=== PATIENT | female | born 1985 | race Caucasian/White ===

== ENCOUNTER 2016-06-21 11:24 | Emergency (ER) | payer MEDICAID ==
[~2016-06-21] VITALS: Ht 152.4 cm; Wt 52.2 kg
[~2016-06-21 11:24] MED LIST: AMOX500C2 PO; CODE-54 PO; DULO20CA; HYDR-1231 PO; IBUP-1773 PO; NAPR-243 PO; NAPR250T34 PO; NAPR500T PO; ONDA4TAB8 PO; PREN-93 PO; PREN1TAB4 PO; RNT150T PO; SULF1TAB35 PO; TRM50T PO; [UNRECOGNIZED DRUG - CODE] OP
[2016-06-21] MEDS ORDERED: DEXAMETHASONE PF 10 MG/ML (DECADRON) VIAL IV STA (12:22)
[2016-06-21] MEDS ORDERED: HYDROcodone/APAP 5 MG/325 MG (LORTAB) TAB PO STA (12:22)
[2016-06-21] MEDS ORDERED: ACETAMINOPHEN 325 MG TABLET/CAPLET (TYLENOL) PO STA (12:22)
[2016-06-21] MEDS ORDERED: DEXAMETHASONE PF 10 MG/ML (DECADRON) VIAL IM STA (12:28)
--- NOTE | 2016-06-21 12:28 | ED EENT ---
History of Present Illness General Chief Complaint: Ear Problems Stated Complaint: LEFT EARACHE Nursing Triage Note: pt states she has had a left ear ache since yesterday morning. She put equate instant dry drops into her left ear and slept with a cotton ball in last night. she woke up feeling worse than yesterday. pt states she cant turn her head at all and there is a knot in her neck on the left side. She made a doctor appt but wasn't able to get in till 1420 this afternoon, pt states she couldn't wait that long that pain is to intense. History of Present Illness Time seen by provider: 12:15 Initial Comments Left ear pain that began yesterday morning. Rates the pain at a 9/10 at the present time. No history of previous ear problems. Took ibuprofen 800 mg last night no medications today for treatment. Timing/Duration: abrupt Severity: severe Location: ear (L), other (left neck) Prearrival Treatment: no prearrival treatment Modifying Factors: Improves With Rest Associated Symptoms: change in hearing (left ear decreased), No cough, No ear drainage, No facial pain/swelling, fever, No nasal congestion/drainage, No sinus infection, No sore throat, No tooth pain, No voice change Allergies and Home Medications Allergies Coded Allergies: NKANo Known Allergies (Verified Allergy, Unknown, 10/12/06) No Known Drug Allergies (Unverified , 06/02/08) Home Medications Amoxicillin 500 Mg Capsule, 500 MG PO TID for 10 Days, #30 Ref 0 Prescribed by: XIOMARA ALONZO on 06/21/16 1324 Zach/Polymyx B Sulf/Dexameth 5 Ml Drops.susp, 3 DROPS LEFT EAR TID for 7 Days, # 1 Ref 0 Prescribed by: XIOMARA ALONZO on 06/21/16 1324 Review of Systems Constitutional: no symptoms reported, see HPI Eyes: No Symptoms Reported, See HPI Ears: See HPI, Pain (left) Nose: no symptoms reported, see HPI Mouth: no symptoms reported, see HPI Throat: no symptoms reported, see HPI Respiratory: no symptoms reported, see HPI Cardiovascular: no symptoms reported, see HPI Gastrointestinal: no symptoms reported, see HPI : No (tubal ligation) Musculoskeletal: no symptoms reported, see HPI Skin: no symptoms reported, see HPI Neurological: No Symptoms Reported, See HPI Hematologic/Lymphatic: No Symptoms Reported, See HPI Immunological/Allergic: no symptoms reported, see HPI All Other Systems Reviewed Negative Unless Noted: Yes Past Bmfvckh-Ylygjg-Ndsrld Hx Patient Social History Alcohol Use: Denies Use Recreational Drug Use: No (smokes 1 PPD x's 5-6 years) Smoking Status: Current Everyday Smoker Type Used: Cigarettes 2nd Hand Smoke Exposure: Yes Recent Foreign Travel: No Contact w/Someone Who Travel: No Recent Infectious Disease Expo: No Immunizations Up To Date Tetanus Booster (TDap): Unknown Date of Influenza Vaccine: Mar 15, 2013 Seasonal Allergies Seasonal Allergies: No Surgeries HX Surgeries: Yes Respiratory Hx Respiratory Disorders: No Cardiovascular Hx Cardiac Disorders: No Neurological Hx Neurological Disorders: No Reproductive System Hx Reproductive Disorders: No Genitourinary Hx Genitourinary Disorders: No Gastrointestinal Hx Gastrointestinal Disorders: No Musculoskeletal Hx Musculoskeletal Disorders: No Endocrine Hx Endocrine Disorders: No HEENT HX ENT Disorders: No Cancer Hx Cancer: No Psychosocial Hx Psychiatric Problems: Yes ( Depression) Behavioral Health Disorders: Depression Integumentary HX Skin/Integumentary Disorder: No Blood Transfusions Hx Blood Disorders: No Reviewed Nursing Assessment Reviewed/Agree w Nursing PMH: Yes Family Medical History Family Medial History: Patient reports no known family medical history. Physical Exam Vital Signs Vital Sign - Last 12Hours 06/21/16 11:55 Temp 100.3 Pulse 117 Resp 18 B/P (MAP) 137/94 Pulse Ox 98 O2 Delivery Room Air General Appearance: WD/WN, no apparent distress Eyes: bilateral eye EOMI, bilateral eye PERRL, bilateral eye normal inspection Ears: right ear TM normal, right ear canal normal, left ear discharge, left ear erythema, left ear other (Purulent drainage in ear canal), left ear swelling , left ear tenderness, bilateral ear auricle normal Nose: normal inspection, No active bleeding, No discharge, No sinus tenderness Mouth/Throat: normal mouth inspection, pharynx normal Neck: lymphadenopathy (L) (2+, preauricular and posterior cervical) Cardiovascular: normal peripheral pulses, regular rate, rhythm, no JVD, no murmur Respiratory: chest non-tender, lungs clear, normal breath sounds, no respiratory distress Gastrointestinal: normal bowel sounds, non tender, soft Neurologic/Psychiatric: no motor/sensory deficits, alert, normal mood/affect, oriented x 3 Skin: normal color, warm/dry Progress/Results/Core Measures Results/Orders My Orders Orders - XIOMARA ALONZOP Dexamethasone Pf Injection (Decadron Pf (06/21/16 12:22) Acetaminophen Tablet/Caplet (Tylenol T (06/21/16 12:22) Hydrocodone/Apap 5/325 Tablet (Lortab 5 (06/21/16 12:22) Dexamethasone Pf Injection (Decadron Pf (06/21/16 12:28) Vital Signs/I&O Vital Sign - Last 12Hours 06/21/16 06/21/16 11:55 13:32 Temp 100.3 100.3 Pulse 117 117 Resp 18 18 B/P (MAP) 137/94 Pulse Ox 98 98 O2 Delivery Room Air Blood Pressure Mean: 108 Progress Note : Time: 12:15 Progress Note Initial evaluation for left ear pain. Canal edematous and tender, with purulent drainage present. Using an ear curet, the drainage and some cerumen was removed. The TM could then be visualized and was intact, but with the erythema noted. An ear wick was placed. Decadron 10 mg IM and [place] 5 mg for pain. 1245 discharge planning reviewed with the patient, recommended she follow-up with Merly Cano APRN, tomorrow for removal of the ear wick. She is to take the oral antibiotics and use the eardrops as prescribed. She verbalized understanding of this. Departure Impression Impression: Primary Impression: Otitis externa Qualified Codes: H60.312 - Diffuse otitis externa, left ear Additional Impression: Otitis media Qualified Codes: H66.002 - Acute suppurative otitis media without spontaneous rupture of ear drum, left ear Disposition: 01 HOME, SELF-CARE Condition: Improved Departure-Patient Inst. Decision time for Depature: 13:05 Referrals: [facility] (PCP/Family) Primary Care Physician Patient Instructions: Ear Infections (Otitis Media) (DC), Outer Ear Infection ( DC) Add. Discharge Instructions: All discharge instructions reviewed with patient and/or family. Voiced understanding. Alternate every 4 hours between ibuprofen 600 mg and Tylenol 650 mg by mouth Take antibiotics orally and use eardrops as prescribed. Return to emergency department for increased ear pain, decreased hearing, new problems or concerns. Follow-up with Merly Cano APRN tomorrow for removal of the ear wick. Scripts Zach/Polymyx B Sulf/Dexameth (Bcbslw-Ekohk-Bvvllejf Eye Drop) 5 Ml Drops.susp 3 DROPS LEFT EAR TID for 7 Days, #1 EACH 0 Refills Prov: XIOMARA ALONZO 06/21/16 Amoxicillin (Amoxicillin) 500 Mg Capsule 500 MG PO TID for 10 Days, #30 CAP 0 Refills Prov: XIOMARA ALONZO 06/21/16 Copy Copies To 1: TABITHA PANTOJA MD, AMY ARNP Jun 21, 2016 12:28
[2016-06-21] MEDS ORDERED: AMOX500C2 PO (13:24)
[2016-06-21] MEDS ORDERED: NPD5OP LEFT EAR (13:24)
[2016-06-21 13:32] VITALS: BP 137/94
== END 2016-06-21 13:32 | disposition home or self-care (01) ==
LOC: EDUNIT# 11:24 → ER 11:26
DX: H60.312 Diffuse otitis externa, left ear (principal); H66.002 Acute suppurative otitis media without spontaneous rupture of ear drum, left ear; F17.210 Nicotine dependence, cigarettes, uncomplicated
CPT/HCPCS: 96372; 99282

== ENCOUNTER 2016-08-04 10:05 | Emergency (ER) | payer SELFPAY ==
[~2016-08-04] VITALS: Ht 157.5 cm; Wt 59.0 kg
[~2016-08-04 10:05] MED LIST changes: +NPD5OP LEFT EAR
--- NOTE | 2016-08-04 10:54 | ED EENT ---
History of Present Illness General Chief Complaint: Dental Problems/Pain Stated Complaint: DENTAL PAIN/SWELLING Nursing Triage Note: AMB TO ROOM WITH DENTAL PAIN REPORTS HAS BROKEN TOOTH HAD DENTAL A[PPOINTMENT AT [facility] ON SATURDAY AT 3P [address] [facility] SWOLLEN. Source: patient Exam Limitations: no limitations History of Present Illness Time seen by provider: 10:50 Initial Comments Patient presents with several months of a broken tooth that in the last few weeks has progressively gotten more and more painful so she went to the dental clinic was seen but was not able to have her extraction done at that time so she was scheduled for this at the dental clinic on [facility]. Patient states that did not give her anything for pain or antibiotics at that time as it does not look infected. This morning she woke up with a lot of swelling on the right lower jaw tenderness and pain was uncontrollable of ibuprofen. She has had no fevers, chills, nausea, vomiting. She has a bilateral tubal ligation so she is not likely . Allergies and Home Medications Allergies Coded Allergies: NKANo Known Allergies (Verified Allergy, Unknown, 10/12/06) No Known Drug Allergies (Unverified , 06/02/08) Home Medications Amoxicillin/Potassium Clav 1 Each Tablet, 1 EACH PO BID for 10 Days, #20 Ref 0 Prescribed by: SAJAN HIGGINS on 08/04/16 1138 Hydrocodone/Acetaminophen 1 Each Tablet, 1 EACH PO Q6H PRN for PAIN-BREAKTHROUGH , #14 Ref 0 Prescribed by: SAJAN HIGGINS on 08/04/16 1138 Review of Systems Constitutional: No chills, No diaphoresis, No dizziness, No fever, No malaise Eyes: Denies Blurred Vision, Denies Drainage, Denies Pain Ears: Denies Dizziness, Denies Pain, Denies Tinnitus Nose: denies congestion, denies epistaxis, denies pain Mouth: see HPI, pain, swelling, denies purulent discharge, denies serosanguinous discharge, other (broken teeth) Throat: denies pain, denies swelling, denies painful swallowing, denies difficulty with fluids Respiratory: No cough, No short of breath, No wheezing Past Zimkjdr-Lxytgp-Aqtiih Hx Patient Social History Alcohol Use: Occasionally Uses Recreational Drug Use: No (smokes 1 PPD x's 5-6 years) Smoking Status: Current Everyday Smoker Type Used: Cigarettes 2nd Hand Smoke Exposure: Yes Recent Foreign Travel: No Contact w/Someone Who Travel: No Recent Infectious Disease Expo: No Recent Hopitalizations: Yes (head trauma, 2 vaginal births) Immunizations Up To Date Tetanus Booster (TDap): Unknown Date of Influenza Vaccine: Mar 15, 2013 Seasonal Allergies Seasonal Allergies: No Surgeries HX Surgeries: Yes Surgeries: Appendectomy, Tonsillectomy Respiratory Hx Respiratory Disorders: No Cardiovascular Hx Cardiac Disorders: No Neurological Hx Neurological Disorders: No Reproductive System Hx Reproductive Disorders: No Genitourinary Hx Genitourinary Disorders: No Gastrointestinal Hx Gastrointestinal Disorders: No Musculoskeletal Hx Musculoskeletal Disorders: No Endocrine Hx Endocrine Disorders: No HEENT HX ENT Disorders: No Cancer Hx Cancer: No Psychosocial Hx Psychiatric Problems: Yes ( Depression) Behavioral Health Disorders: Depression Integumentary HX Skin/Integumentary Disorder: No Blood Transfusions Hx Blood Disorders: No Family Medical History Family Medial History: Patient reports no known family medical history. Physical Exam Vital Signs Vital Sign - Last 12Hours 08/04/16 10:12 Temp 97.5 Pulse 103 Resp 18 B/P (MAP) 141/103 General Appearance: WD/WN, no apparent distress Eyes: bilateral eye EOMI, bilateral eye PERRL, bilateral eye normal inspection Ears: bilateral ear TM normal, bilateral ear auricle normal, bilateral ear canal normal Nose: normal inspection, No active bleeding, No discharge, No sinus tenderness Mouth/Throat: other (dental caries with a broken right lower molar that has direct swelling leading out from it into the nuchal region. There is no palpable induration or pocket of fluctuance. There is no poor or drainage or discharge. Tender to palpation.) Neck: non-tender, full range of motion, supple, normal inspection Cardiovascular: normal peripheral pulses, no edema Respiratory: lungs clear, no respiratory distress Neurologic/Psychiatric: alert, oriented x 3 Skin: normal color, warm/dry, other (swelling over right lower mandible/Buccal region) Additional Procedures : Additional Procedures: Peripheral Nerve Block (Right alveolar N.) Progress RBA's explained and accepted about the patient. Risk of bleeding, infection, need for more injections. Benefits would be pain control and get a better exam. 5 cc of 0.5% Marcaine without epinephrine were mixed with 5 cc of 1% lidocaine with epinephrine and a total of 4-1/2 cc of this mixture was injected around the alveolar nerve on the right mandible. Patient tolerated the procedure well. Progress/Results/Core Measures Results/Orders Lab Results Laboratory Tests Test 08/04/16 11:18 Range/Units White Blood Count 17.0 H 4.3-11.0 10^3/uL Red Blood Count 5.05 4.35-5.85 10^6/uL Hemoglobin 15.5 11.5-16.0 G/DL Hematocrit 45 35-52 % Mean Corpuscular Volume 90 80-99 FL Mean Corpuscular Hemoglobin 31 25-34 PG Mean Corpuscular Hemoglobin Concent 34 32-36 G/DL Red Cell Distribution Width 13.8 10.0-14.5 % Platelet Count 292 130-400 10^3/uL Mean Platelet Volume 9.1 7.4-10.4 FL Neutrophils (%) (Auto) 81 H 42-75 % Lymphocytes (%) (Auto) 12 12-44 % Monocytes (%) (Auto) 7 0-12 % Eosinophils (%) (Auto) 1 0-10 % Basophils (%) (Auto) 0 0-10 % Neutrophils # (Auto) 13.8 H 1.8-7.8 X 10^3 Lymphocytes # (Auto) 2.0 1.0-4.0 X 10^3 Monocytes # (Auto) 1.2 H 0.0-1.0 X 10^3 Eosinophils # (Auto) 0.1 0.0-0.3 10^3/uL Basophils # (Auto) 0.0 0.0-0.1 10^3/uL Sodium Level 138 135-145 MMOL/L Potassium Level 3.9 3.6-5.0 MMOL/L Chloride Level 106 98-107 MMOL/L Carbon Dioxide Level 21 21-32 MMOL/L Anion Gap 11 5-14 MMOL/L Blood Urea Nitrogen 5 L 7-18 MG/DL Creatinine 0.69 0.60-1.30 MG/DL Estimat Glomerular Filtration Rate > 60 BUN/Creatinine Ratio 7 Glucose Level 102 70-105 MG/DL Calcium Level 9.3 8.5-10.1 MG/DL My Orders Orders - SAJAN HIGGINS Lidocaine/Epi 1% 1:100,000 (Xylocaine /E (08/04/16 11:00) Bupivacaine 0.5% Injection (Sensorcaine (08/04/16 11:00) Ct Maxillofacial Wo (08/04/16 10:57) Basic Metabolic Panel (08/04/16 10:59) Cbc With Automated Diff (08/04/16 10:59) Manual Differential (08/04/16 11:18) Medications Given in ED Current Medications Medications Dose Ordered Sig/Lor Route Start Time Stop Time Status Last Admin Dose Admin Bupivacaine HCl 30 ml ONCE ONCE INJ 08/04/16 11:00 08/04/16 11:01 DC 08/04/16 12:13 30 ML Lidocaine/ Epinephrine 20 ml ONCE ONCE INJ 08/04/16 11:00 08/04/16 11:01 DC 08/04/16 12:14 20 ML Vital Signs/I&O Vital Sign - Last 12Hours 08/04/16 10:12 Temp 97.5 Pulse 103 Resp 18 B/P (MAP) 141/103 Blood Pressure Mean: 116 Progress Note : Time: 11:29 Progress Note Gave her an alveolar nerve block and will get some pain relief with that. Then we'll treat her appropriate antibiotics but first we get a CT of the maxillofacial looking for possible abscess. If no overt abscess or ostium mellitus is seen and would allow her to continue with her planned follow-up on antibiotics with dentistry. Otherwise we will discuss with the dental surgeon. Diagnostic Imaging Diagonstic Imaging: CT Plain Films/CT/US/NM/MRI: facial bones Comments No abscess or osteomyelitis seen. Reviewed: Reviewed by Me Departure Impression Impression: Primary Impression: Dental caries Additional Impression: Cheek swelling Disposition: HOME, SELF-CARE Condition: Improved Departure-Patient Inst. Decision time for Depature: 12:42 Referrals: [facility] (PCP/Family) Primary Care Physician Patient Instructions: Dental Pain (DC) Add. Discharge Instructions: Your dental pain should be managed ultimately by dentistry by extraction of the tooth as appropriate. We will put on antibiotics to prevent an infection that would travel through your bloodstream possibly to your heart. You should stay on this antibiotic until cleared by your dentist or 10 days. Take it twice a day with some food. It is okay also use probiotics twice daily or eat yogurt twice daily with active culture. If you're having pain between now and then you should use Tylenol and then ibuprofen. If this does not work then you can also use the pain pill I will prescribe for you. If you're on the pain pill you should be on a laxative as this can cause constipation. Do not mix a pain pill with alcohol. Do not drive or make decisions while on the influence of [place]. Follow up with your dentist appointment on . All discharge instructions reviewed with patient and/or family. Voiced understanding. Scripts Hydrocodone/Acetaminophen ([place] 5-325 Tablet) 1 Each Tablet 1 EACH PO Q6H Y for PAIN-BREAKTHROUGH, #14 TAB 0 Refills Prov: SAJAN HIGGINS 08/04/16 Amoxicillin/Potassium Clav (Augmentin 875-125 Tablet) 1 Each Tablet 1 EACH PO BID for 10 Days, #20 TAB 0 Refills Prov: SAJAN HIGGINS 08/04/16 Copy Copies To 1: BETTYE ARCE DO SAJAN HIGGINS Aug 04, 2016 10:54
[2016-08-04] MEDS ORDERED: LIDOCAINE/EPI 1%-1:100,000 (XYLOCAINE) 20ML INJ ONE (11:00)
[2016-08-04] MEDS ORDERED: BUPIVACAINE 0.5% 30 ML (SENSORCAINE) VIAL INJ ONE (11:00)
[2016-08-04 11:30] LABS: BASOPHILS % (AUTO) 0 % (0-10); EOSINOPHILS # (AUTO) 0.1 10^3/uL (0.0-0.3); EOSINOPHILS % (AUTO) 1 % (0-10); LYMPHOCYTES % (AUTO) 12 % (12-44); MEAN CORPUSCULAR HEMOGLOBIN 31 PG (25-34); MEAN CORPUSCULAR HGB CONC 34 G/DL (32-36); MEAN CORPUSCULAR VOLUME 90 FL (80-99); MEAN PLATELET VOLUME 9.1 FL (7.4-10.4); MONOCYTES # (AUTO) 1.2 X 10^3 (0.0-1.0); MONOCYTES % (AUTO) 7 % (0-12); NEUTROPHILS # (AUTO) 13.8 X 10^3 (1.8-7.8); NEUTROPHILS % (AUTO) 81 % (42-75); PLATELET COUNT 292 10^3/uL (130-400); RED BLOOD COUNT 5.05 10^6/uL (4.35-5.85); RED CELL DISTRIBUTION WIDTH 13.8 % (10.0-14.5)
[2016-08-04] MEDS ORDERED: AMOX-358 PO (11:38)
[2016-08-04] MEDS ORDERED: HYDR-757 PO (11:38)
[2016-08-04 11:46] LABS: ANION GAP 11 MMOL/L (5-14); BLOOD UREA NITROGEN 5 MG/DL (7-18); BUN/CREATININE RATIO 7; CALCIUM 9.3 MG/DL (8.5-10.1); CARBON DIOXIDE 21 MMOL/L (21-32); CHLORIDE 106 MMOL/L (98-107); CREATININE SERUM 0.69 MG/DL (0.60-1.30); GFR ESTIMATED > 60; GLUCOSE 102 MG/DL (70-105); POTASSIUM 3.9 MMOL/L (3.6-5.0); SODIUM 138 MMOL/L (135-145)
[2016-08-04 12:50] VITALS: BP 114/100
[2016-08-04 13:01] LABS: LYMPHOCYTES % (MANUAL) 16 %; NEUTROPHILS % (MANUAL) 81 %
--- NOTE | 2016-08-04 13:09 | Diagnostic Imaging Report ---
PROCEDURE: CT maxillofacial without contrast. TECHNIQUE: Multiple contiguous axial images were obtained through the facial bones without the use of intravenous contrast. INDICATION: Right jaw pain and swelling. FINDINGS: The frontal sinuses, ethmoid air cells and sphenoid sinuses are clear. There is moderate mucosal thickening in the left maxillary sinus. Right maxillary sinus is clear. The zygomatic arches are intact. The nasal bones intact. There is some minimal inflammatory change and tiny pockets of air about the right maxilla. No discrete abscess is appreciated, however, this is thought to be reflect an early infectious process possibly related to right maxillary molar. There are periapical lucencies about molars in the left maxilla suspect for infection. The cervical spine are unremarkable. There is an enlarged lymph node anterior to the right submandibular gland measuring 1.7 cm. IMPRESSION: Mild inflammatory change and some tiny pockets of air anterior to the angle of mandible on the right. There are no mandibular molars. This may be an infectious process possibly related to a maxillary molar on the right. No discrete abscess is appreciated. Focal lucencies about maxillary molars on the left which extend towards the maxillary sinus. This is suspect for periapical abscess. This may be to contributing to the maxillary sinus mucosal thickening seen on the left. Recommend clinical correlation. Dictated by: Dictated on workstation # [id number]
== END 2016-08-04 12:51 | disposition home or self-care (01) ==
LOC: EDUNIT# 10:05 → ER 10:07
DX: K02.9 Dental caries, unspecified (principal); R22.0 Localized swelling, mass and lump, head; F17.210 Nicotine dependence, cigarettes, uncomplicated
CPT/HCPCS: 36415; 70486; 80048; 85007; 85027; 99283